=== PATIENT | male | born 1990 | race Caucasian/White ===

== ENCOUNTER 2023-03-18 18:16 | Emergency (ER) | payer SELFPAY ==
[2023-03-18] MEDS ORDERED: Dexamethasone 10 MG/ML SDV PO ONE (18:33)
[2023-03-18] MEDS ORDERED: Penicillin V Potassium 500 MG Tab PO STA (18:34)
== END 2023-03-18 19:09 | disposition home or self-care (01) ==
LOC: MW.ED 18:16
DX: J02.9 Acute pharyngitis, unspecified (principal)
CPT/HCPCS: 99282; A9270; J8540; 99283

== ENCOUNTER 2023-08-31 11:04 | Emergency (ER) | payer SELFPAY | END 2023-08-31 11:46 | disposition home or self-care (01) | LOC: MW.ED 11:04 | DX: H60.91 Unspecified otitis externa, right ear (principal); Z75.8 Other problems related to medical facilities and other health care; Z79.899 Other long term (current) drug therapy | CPT/HCPCS: 99282; 99283 ==

== ENCOUNTER 2023-09-02 16:10 | Emergency (ER) | payer SELFPAY ==
[2023-09-02] MEDS: Sodium Chloride 0.9% 10 ML Syringe FLUSH PRN (17:11)
[2023-09-02] MEDS: Sodium Chloride 0.9% 2.5 ML Syringe FLUSH PRN (17:11)
[2023-09-02 17:16] LABS: BASOPHILS ABSOLUTE AUTO 0.04 K/uL (0.00-0.20); BASOPHILS PERCENT AUTO 0.5 % (0.0-1.0); EOSINOPHILS ABSOLUTE AUTO 0.28 K/uL (0.00-0.45); EOSINOPHILS PERCENT AUTO 3.2 % (0.0-6.0); HEMOGLOBIN 15.8 g/dL (14.0-18.0); IMMATURE GRAN ABSOLUTE AUTO 0.01 K/uL (0.00-0.05); IMMATURE GRAN PERCENT AUTO 0.1 % (0.0-0.4); LYMPHOCYTES ABSOLUTE AUTO 2.07 K/uL (1.00-4.80); LYMPHOCYTES PERCENT AUTO 23.5 % (24.0-44.0); MEAN CORPUSCULAR HEMOGLOBIN 31.8 pg (28.0-32.0); MEAN CORPUSCULAR HGB CONC 35.9 g/dL (32.0-36.0); MEAN CORPUSCULAR VOLUME 88.5 fL (83.0-99.0); MEAN PLATELET VOLUME 9.1 fL (9.4-12.4); MONOCYTES ABSOLUTE AUTO 0.79 K/uL (0.00-0.80); NEUTROPHILS PERCENT AUTO 63.7 % (41.0-71.0); PLATELET COUNT,PLT 280 K/uL (150-400); RED BLOOD CELL COUNT 4.97 M/uL (4.52-5.90); WHITE BLOOD CELL COUNT,WBC 8.79 K/uL (3.9-11.3)
[2023-09-02 17:34] LABS: CARBON DIOXIDE,CO2 29.4 mmol/L (21.0-32.0); CREATININE 1.1 mg/dL (0.8-1.3); EST CRCL DRUG DOSING (CG) 93.27 mL/min; POTASSIUM,K 3.9 mmol/L (3.5-5.1)
[2023-09-02] MEDS: Iopamidol 755 MG/ML 500 ML Multipack Bottle IVPUSH STA (18:09)
[2023-09-02] MEDS: Ketorolac 30 MG/ML SDV IVPUSH ONE (19:06)
[2023-09-02] MEDS: Ampicillin/Sulbactam Na 3 GM in Sodium Chloride 0.9% 100 ML IV ONE (19:07)
== END 2023-09-02 19:47 | disposition home or self-care (01) ==
LOC: MW.ED 16:10
DX: H00.034 Abscess of left upper eyelid (principal); H66.91 Otitis media, unspecified, right ear; K02.9 Dental caries, unspecified; F17.210 Nicotine dependence, cigarettes, uncomplicated; Z79.899 Other long term (current) drug therapy
CPT/HCPCS: 36415; 70488; 80048; 85025; 96365; 96375; 99284; J0295; J1885; J3490; Q9967

== ENCOUNTER 2023-09-21 12:23 | Emergency (ER) | payer SELFPAY ==
[2023-09-21] MEDS: predniSONE 10 MG Tab PO ONE (13:11)
== END 2023-09-21 13:14 | disposition home or self-care (01) ==
LOC: MW.ED 12:23
DX: M10.9 Gout, unspecified (principal); F17.210 Nicotine dependence, cigarettes, uncomplicated
CPT/HCPCS: 99283; A9270

== ENCOUNTER 2023-09-27 10:34 | Emergency (ER) | payer SELFPAY | END 2023-09-27 15:00 | disposition home or self-care (01) | LOC: MW.ED 10:34 | DX: M10.9 Gout, unspecified (principal) | CPT/HCPCS: 73630-26-LT; 73630-LT; 99283 ==

== ENCOUNTER 2024-05-25 17:13 | Emergency (ER) | payer SELFPAY | END 2024-05-25 18:52 | disposition left against medical advice (07) | LOC: MW.ED 17:13 | DX: Z53.21 Procedure and treatment not carried out due to patient leaving prior to being seen by health care provider (principal) ==